=== PATIENT | male | born 1975 | race Hispanic/Latino ===

== ENCOUNTER 2022-08-02 22:09 | Emergency (ER) | payer BC ==
[~2022-08-02] VITALS: Ht 160 cm; Wt 115.7 kg
[2022-08-03] MEDS: 0.9%NACL 1000ML 1,000 ML IV ONE (03:02)
[2022-08-03] MEDS: KETOROLAC 30MG VIAL (30MG/ML) IVP ONE (03:03)
[2022-08-03] MEDS: METOCLOPRAMIDE 10 MG/2 ML VIAL IVP ONE (03:03)
[2022-08-03] MEDS: DIAZEPAM 5 MG/ML 2 ML SYG IVP ONE (03:03)
[2022-08-03] MEDS: FAMOTIDINE 20MG VIAL IV ONE (03:03)
[2022-08-03] MEDS ORDERED: MELO-106 PO (04:11)
[2022-08-03 04:40] VITALS: BP 161/89
== END 2022-08-03 04:55 | disposition home or self-care (01) ==
LOC: EDH 22:09
DX: S29.012A Strain of muscle and tendon of back wall of thorax, initial encounter (principal); M62.838 Other muscle spasm; M47.9 Spondylosis, unspecified; I10 Essential (primary) hypertension; X58.XXXA Exposure to other specified factors, initial encounter; Y93.89 Activity, other specified; Y92.89 Other specified places as the place of occurrence of the external cause; Y99.8 Other external cause status
CPT/HCPCS: 99284; 96374; 96375; 72072; J3490; J7030; J3360; J1885; J2765